=== PATIENT | male | born 1955 | race Caucasian/White ===

== ENCOUNTER 2024-10-28 12:59 | Outpatient (RCR) | payer MEDICARE, OTHER, SELFPAY ==
--- NOTE | 2024-10-28 15:59 | HP.OTEVAL_ITS ---
Patient's Visit Information Visit Information Visit Information: JC OLSEN is a 69 year old M, referred to Occupational Therapy by KURT LEWIS, with a diagnosis of BLE edema, chronic low back pain, venous insufficiency. Date of Evaluation: 10/28/24 Occupational Therapist: Magui Marrero Subjective Subjective: This 69 year old male arrives for OT eval with dx of B LEs edema, chronic B low back pain, nebous insufficiency, coronary artery calcification. pt reports cervical spine collapse in May 04 waking up with no movement on R side. Pt with surgery July [address] Ovalle C2-C6 donor bone metal plate in cervical region. pt initially after surgery has slight movement of R side however had a fall on after this little to no movement of R UE and no bowel bladder control. Pt has been wearing compression stockings that were provided to him by cardiovascular team however states he feels they have not yet helped him. states he did try stockings at 30-40 compression value however was not able to wear them due to inability to get them on and off. Pt currently spends almost 24/7 within electric wheelchair including sleeping. pt was in the hospital and at this time per report they did use pumps to BLEs and states these did help him. pt is on a water pill in order to assist with extra fluid. Objective Objective/Observation: pt arrives in power wheelchair -- unable to perform mobility at this time is able to stand for very brief periods of time to assist spouse with clothing management ect. swelling of BLEs with little movement due to condition and medical complications. pt demonstrates little to no movement of RUE and BLEs. Lymphedema (Circumferential Measure) Mid-foot: L 27 cm R 29.5 cm Ankle: L34 cm R 33 cm Lower calf: L 31 cm R 38 cm Largest calf: L 42 cm R 49 cm Below knee: L 49 cm R 52 cm Sensation Sensation Comments: numbness of BLE as well as RUE Rehabilitation General Assessment: This 69 year old male arrives with dx of B LE edema, chronic lower back pain, venous insufficiency, coronary artery calcification presents with increased swelling of BLEs. pt states swelling has been getting worse the last few weeks and concerned about discoloration of B ankles. Pt would benefit from OT services 3-4 sessions within a 3 month period in order to provide ed and training on proper compression garments, skin care, LE exercise, lymph massage, as well as positioning in order to decrease swelling. Rehabilitation Potential: Good Anticipated Interventions Anticipated Interventions: Edema Control, Joint Protection/Energy Conservation, Education re Diagnosis, Manual Lymph Drainage, Education re Skin Care and Pr ecautions, Education re Self Massage Techniques, Education re Correct Donning Tech,Care&Wearing Sched Comp Garments, Caregiver Training and Home Program Visit Plan Frequency: 3 to 4 sessions Duration: 3 Months General Plan: velcro closure garments LE exercise to tolerance lymph massage skin care TEXT: Thank you for the opportunity to evaluate your patient. For Medicare and Medicare HMO plans, please review the plan of care and approve it. It will need to be FAXED BACK to us at [phone] for Medicare purposes. Please let me know if there are questions or concerns regarding this plan of care. Physician Signature:____ Date:
--- NOTE | 2024-11-18 07:57 | HP.OTDCNRP_ITS ---
Patient Information Patient Information: JC OLSEN was seen in my office for initial evaluation on 10/28/24. The following Plan of Care was established for this patient: POC Established Initial Frequency: 3 to 4 sessions Initial Duration: 3 Months Anticipated Interventions Anticipated Interventions: Edema Control, Joint Protection/Energy Conservation, Education re Diagnosis, Manual Lymph Drainage, Education re Skin Care and Precautions, Education re Self Massage Techniques, Education re Correct Donning Tech,Care&Wearing Sched Comp Garments, Caregiver Training and Home Program Last Seen Last Seen: This patient was last seen in our office 10/28/24. Pertinent comments regarding their Occupational therapy will appear below: This 69 year old male referred to OT with dx of BLE edema as well as venous insufficiency and chronic low back pain. pt seen for evaluation only at this time and has reached out to front office medical assistant stating he has decided to go on hospice services and will not be coming back for additional appointments at this time. discharge from OT caseload per pt request. At this point I will be discontinuing this patient from occupational therapy. I would be happy to see this patient again in the future if found appropriate by the physician. Thank you! Magui Marrero
== END 2024-10-28 19:00 | disposition home or self-care (01) ==
LOC: OT 12:59
PROVIDERS: PCP Pediatrics
DX: R60.0 Localized edema (principal)
CPT/HCPCS: 97166; 97530